=== PATIENT | male | born 1990 | race Caucasian/White ===

== ENCOUNTER 2016-05-14 01:53 | Emergency (ER) | payer OTHER ==
[~2016-05-14] VITALS: Ht 188 cm; Wt 81.6 kg
[2016-05-14 02:00] VITALS: BP 134/69
== END 2016-05-14 03:21 | disposition home or self-care (01) ==
LOC: ER 01:56
DX: F15.10 Other stimulant abuse, uncomplicated (principal)
CPT/HCPCS: 99283; A4606; Z7610